=== PATIENT | male | born 1970 | race Hispanic/Latino ===

== ENCOUNTER 2023-11-16 14:31 | Emergency (ER) | payer SELFPAY ==
[2023-11-16] MEDS ORDERED: Famotidine/PF 20 mg/2ml Vial ONE (15:25)
[2023-11-16] MEDS ORDERED: Pantoprazole 40 MG VIAL ONE ×2 (15:25→15:32)
== END 2023-11-16 17:30 | disposition home or self-care (01) ==
LOC: ERS 14:31
DX: K21.9 Gastro-esophageal reflux disease without esophagitis (principal); I10 Essential (primary) hypertension; G89.29 Other chronic pain; M54.9 Dorsalgia, unspecified; Z55.6 Problems related to health literacy; Z75.3 Unavailability and inaccessibility of health-care facilities; Z87.891 Personal history of nicotine dependence; Z79.899 Other long term (current) drug therapy
CPT/HCPCS: 74177; 96374; 96375; C9113; S0028

== ENCOUNTER 2025-08-20 23:36 | Emergency (ER) | payer SELFPAY ==
[2025-08-21 01:14] LABS: #Basophils 0.04 10x3/uL (0.0-0.2); #Eosinophils 0.11 10x3/uL (0.0-0.7); #Monocytes 0.95 10x3/uL (0.11-0.59); #Neutrophils 3.78 10x3/uL (1.40-6.50); %Basophils 0.6 % (0.0-1.0); %Eosinophils 1.6 % (0.0-10.0); %Lymphocytes 29.1 % (21.0-51.0); %Monocytes 13.8 % (0.0-10.0); %Neutrophils 54.8 % (42.0-75.0); Hematocrit 44.2 % (42.0-52.0); Hemoglobin 15.6 g/dL (14.0-18.0); Mean Corpuscular Hemoglobin 30.9 pg (27.0-31.0); Mean Corpuscular Volume 87.5 fL (78.0-98.0); Platelet Count 130 10x3/uL (130-400); Red Blood Cell (RBC) Count 5.05 mill/uL (4.70-6.10); White Blood Cell (WBC) Count 6.90 10x3/uL (4.8-10.8)
[2025-08-21 01:20] LABS: ALT (SGPT) 32 U/L (Less than 45); AST (SGOT) 36 U/L (11-34); Albumin 4.2 g/dL (3.1-4.5); Alkaline Phosphatase 84 U/L (40-110); Anion Gap 13 mmol/L (10-20); BUN (Urea Nitrogen) 20 mg/dL (8.4-25.7); Bilirubin, Total 1.0 mg/dL (0.3-1.2); Calc. Creatinine Clearance 0 mL/min (70-130); Calcium 9.3 mg/dL (7.8-10.44); Carbon Dioxide 24 mmol/L (22-29); Chloride 103 mmol/L (98-107); Globulin 3.7 g/dL (2.4-3.5); Glucose 107 mg/dL (70-105); Lipase 40 U/L (8-78); Potassium 3.6 mmol/L (3.5-5.1); Sodium 136 mmol/L (136-145)
== END 2025-08-21 01:58 | disposition home or self-care (01) ==
LOC: ERS 23:36
DX: B34.9 Viral infection, unspecified (principal); K21.9 Gastro-esophageal reflux disease without esophagitis; I10 Essential (primary) hypertension; Z87.891 Personal history of nicotine dependence
CPT/HCPCS: 71045; 80053; 83690; 84484; 85025; 87081; 87428; 87430; 93005